=== PATIENT | female | born 2000 | race African-American/Black ===

== ENCOUNTER → 2018-10-31 | Outpatient (CLI) | payer BC ==
--- NOTE | 2018-10-31 15:57 | KCIC ---
EXAM: Chest, 2 views. HISTORY: Positive tuberculin skin test. COMPARISON: None. FINDINGS: 2 views of the chest are obtained. There is no infiltrate, pleural effusion or pneumothorax. The heart is normal in size. IMPRESSION: No acute pulmonary finding or evidence of pulmonary tuberculosis. Electronically signed by: Delilah Akhtar MD (10/31/2018 3:54 PM) [facility]
== END | disposition home or self-care (01) ==
LOC: KCIC 14:12
PROVIDERS: ATTEND Family Medicine
DX: Z11.1 Encounter for screening for respiratory tuberculosis (principal)
CPT/HCPCS: 71046